=== PATIENT | female | born 1970 | race Native Hawaiian/Other Pacific Islander ===

== ENCOUNTER 2018-06-06 08:51 | Emergency (ER) | payer BC ==
[2018-06-06 09:14] VITALS: BMI 33.5
[2018-06-06 09:18] VITALS: RESP 18; TEMP 98.8
--- NOTE | 2018-06-06 09:33 | ED PDOC ---
Arrival/HPI - General Historian: Patient - History of Present Illness Narrative History of Present Illness (Text): 06/06/18 09:26 Patient is a 48yo F with no significant PMH presenting to the ED with vaginal bleeding. She reports profuse vaginal bleeding with clots that began on Wednesdayt evening. The bleeding has slowed over the past 2 days, and now is light. Patient reports associated LLQ cramping pain that she rates 3/10. She reports having a sore throat and cold symptoms for the past 5 days and saw her PMD Dr. Ruiz Wednesday who gave her azithromycin to take. She reports taking 2 doses, 2 hours after which the vaginal bleeding began. Patient denies prior history of abnormal vaginal bleeding, claiming her last menstrual period was 3-4 years ago. She denies family history of cancer. She reports continuation of her productive cough and sore throat at this time. She denies fever, chills, nausea, vomiting, diarrhea, dysuria. She reports some fatigue. <Saurav Babcock - Last Filed: 06/06/18 13:59> <Charlie Scott - Last Filed: 06/06/18 18:40> - General Chief Complaint: Female Genitourinary Past Medical History - Past Medical History Past Medical History: No Previous - Cardiac Hx Cardiac Disorders: No - Pulmonary Hx Respiratory Disorders: No - Neurological Hx Neurological Disorder: No - HEENT Hx HEENT Disorder: No - Renal Hx Renal Disorder: No - Endocrine/Metabolic Hx Endocrine Disorders: No - Hematological/Oncological Hx Blood Disorders: No - Integumentary Hx Dermatological Disorder: Yes (Generalized body rash. "Allergy" as per pt.) - Musculoskeletal/Rheumatological Hx Musculoskeletal Disorders: No Hx Falls: No - Gastrointestinal Hx Gastrointestinal Disorders: No - Genitourinary/Gynecological Hx Genitourinary Disorders: No - Psychiatric Hx Depression: No Hx Emotional Abuse: No Hx Physical Abuse: No Hx Substance Use: No - Past Surgical History Past Surgical History: No Previous - Surgical History Hx Section: Yes - Anesthesia Hx Anesthesia: Yes Hx Anesthesia Reactions: No Hx Malignant Hyperthermia: No - Suicidal Assessment Feels Threatened In Home Enviroment: No <Saurav Babcock - Last Filed: 06/06/18 13:59> Family/Social History Family/Social History: No Known Family HX Smoking Status: Never Smoked Hx Alcohol Use: No Hx Substance Use: No Hx Substance Use Treatment: No <Saurav Babcock - Last Filed: 06/06/18 13:59> Allergies/Home Meds <Kane Babcockroxaneanthony - Last Filed: 06/06/18 13:59> <Charlie Scott - Last Filed: 06/06/18 18:40> Allergies/Adverse Reactions: Allergies chocolate flavor Allergy (Verified 06/06/18 09:13) RASH peanut Allergy (Verified 06/06/18 09:13) ANAPHYLAXIS strawberry Allergy (Verified 06/06/18 09:13) RASH Review of Systems - Review of Systems Constitutional: Fatigue Eyes: Normal ENT: Normal Respiratory: Cough, Sputum Cardiovascular: Normal Gastrointestinal: Abdominal Pain. absent: Diarrhea, Nausea, Vomiting, Hematochezia Genitourinary Female: Vaginal Bleeding. absent: Dysuria Musculoskeletal: Normal Skin: Normal Neurological: Normal Endocrine: Normal Psychiatric: Normal <Kane Babcockroxaneanthony - Last Filed: 06/06/18 13:59> Physical Exam Vital Signs Reviewed: Yes Vital Signs Temp Pulse Resp BP Pulse Ox 06/06/18 09:14 98.8 F 53 L 18 130/90 95 Temperature: Afebrile Blood Pressure: Normal Pulse: Bradycardic Respiratory Rate: Normal Appearance: Positive for: Well-Appearing, Non-Toxic, Comfortable Pain Distress: None Mental Status: Positive for: Alert and Oriented X 3 - Systems Exam Head: Present: Atraumatic, Normocephalic Pupils: Present: PERRL Extroacular Muscles: Present: EOMI Conjunctiva: Present: Normal Mouth: Present: Moist Mucous Membranes Pharnyx: Present: ERYTHEMA. No: EXUDATE, TONSILS ENLARGED, Uvular Deviation Neck: Present: Normal Range of Motion Respiratory/Chest: Present: Clear to Auscultation, Good Air Exchange. No: Respiratory Distress, Accessory Muscle Use, Wheezes, Rales, Rhonchi Cardiovascular: Present: Regular Rate and Rhythm, Normal S1, S2. No: Murmurs, Rub, Gallop Abdomen: Present: Normal Bowel Sounds. No: Tenderness, Distention, Peritoneal Signs Genitourinary/Pelvic Exam: Present: Normal External Genitalia, Vaginal Bleeding. No: Vaginal Discharge, Vaginal Lesions Upper Extremity: Present: Normal Inspection. No: Cyanosis, Edema Lower Extremity: Present: Normal Inspection. No: Edema Neurological: Present: GCS=15, CN II-XII Intact, Speech Normal, Motor Func Grossly Intact Skin: Present: Warm, Normal Color. No: Dry, Rashes Psychiatric: Present: Alert, Oriented x 3, Normal Insight, Normal Concentration <Saurav Babcock - Last Filed: 06/06/18 13:59> Vital Signs Temp Pulse Resp BP Pulse Ox 06/06/18 14:28 60 18 122/86 97 06/06/18 09:14 98.8 F 53 L 18 130/90 95 <Charlie Scott - Last Filed: 06/06/18 18:40> Medical Decision Making ED Course and Treatment: 06/06/18 13:20 Patient reports continuation of her vaginal bleeding, having changed her pad 3 times since in the ED. CT abd/pel without significant findings. 06/06/18 14:00 TVUS without significant findings. Discussed findings with patient, recommended close follow up with [facility]. Advised patient to stop taking azithromycin and to return to ED if symptoms worsen. Patient understood and agreed. <Saurav Babcock - Last Filed: 06/06/18 13:59> - Lab Interpretations Lab Results: PT 12.3 SECONDS (9.4-12.5) 06/06/18 09:45 INR 1.09 06/06/18 09:45 APTT 31.8 Seconds (26.9-38.3) 06/06/18 09:45 Total Bilirubin 0.9 mg/dL (0.2-1.3) 06/06/18 09:45 AST 29 U/L (14-36) 06/06/18 09:45 ALT 22 U/L (7-56) 06/06/18 09:45 Alkaline Phosphatase 81 U/L (38-126) 06/06/18 09:45 Total Protein 8.1 g/dL (5.8-8.3) 06/06/18 09:45 Albumin 4.3 g/dL (3.0-4.8) 06/06/18 09:45 Globulin 3.8 gm/dL 06/06/18 09:45 Albumin/Globulin Ratio 1.2 (1.1-1.8) 06/06/18 09:45 Lipase 64 U/L (23-300) 06/06/18 09:45 Urine Color Yellow (YELLOW) 06/06/18 09:45 Urine Appearance Turbid (CLEAR) 06/06/18 09:45 Urine pH 6.5 (4.7-8.0) 06/06/18 09:45 Ur Specific Joshua 1.020 (1.005-1.035) 06/06/18 09:45 Urine Protein Negative mg/dL (<30 mg/dL) 06/06/18 09:45 Urine Glucose (UA) Negative mg/dL (NEGATIVE) 06/06/18 09:45 Urine Ketones Negative mg/dL (NEGATIVE) 06/06/18 09:45 Urine Blood Large (NEGATIVE) H 06/06/18 09:45 Urine Nitrate Negative (NEGATIVE) 06/06/18 09:45 Urine Bilirubin Negative (NEGATIVE) 06/06/18 09:45 Urine Urobilinogen 0.2 E.U./dL (<1 E.U./dL) 06/06/18 09:45 Ur Leukocyte Esterase Negative Travon/uL (NEGATIVE) 06/06/18 09:45 Urine RBC Tntc /hpf (0-2) H 06/06/18 09:45 Urine WBC 0 - 2 /hpf (0-6) 06/06/18 09:45 Ur Epithelial Cells 1 - 3 /hpf (0-5) 06/06/18 09:45 - RAD Interpretation Radiology Orders: 06/06/18 09:28 TRANSVAGINAL [US] Routine 06/06/18 09:54 ABD PELVIS PO & IV CONTRAST [CT] Stat <Charlie Scott - Last Filed: 06/06/18 18:40> - PA / [employer] APPLICATIONS MANAGER / Resident Statement MD/DO has reviewed & agrees with the documentation as recorded. (48yo F with no significant PMH presenting to the ED with vaginal bleeding. No abd pain on exam. No blood thinners or hx of blood clotting issues or bleeding issues. No fall or trauma. No visible signs of lesions when pelvic exam done with resident. No CMT or adnexeal pain. No rash or strawberry uterus. Given 6mm endometrium, h&h wnl, will reccomend patient followup urgently w/ OBGYN and UROLOGY. Pt denies any back pain or urinary complaints and did not have any CVAT or midline pain on exam.) <Charlie Scott - Last Filed: 06/06/18 18:40> Disposition/Present on Arrival - Present on Arrival Any Indicators Present on Arrival: No History of DVT/PE: No History of Uncontrolled Diabetes: No Urinary Catheter: No History of Decub. Ulcer: No History Surgical Site Infection Following: None - Disposition Have Diagnosis and Disposition been Completed?: Yes Disposition Time: 14:02 <Saurav Babcock - Last Filed: 06/06/18 13:59> <Charlie Scott - Last Filed: 06/06/18 18:40> - Disposition Diagnosis: URI (upper respiratory infection), Vaginal bleeding Disposition: HOME/ ROUTINE Condition: STABLE Discharge Instructions (ExitCare): Viral Upper Respiratory Infection, Adult (DC), Bleeding After Menopause Additional Instructions: Please follow up with your primary doctor for routine care. Please follow up with your ham boner this week. Stop taking azithromycin. Take Mucinex as needed for cough. If symptoms worsen, return to emergency department. Prescriptions: Guaifenesin [Mucinex] 600 mg PO BID #30 tab.er.[id number] Referrals: Dulce Ruiz MD [Family Provider] - Follow up with primary Forms: [employer] (Danish)
[2018-06-06] MEDS ORDERED: Iohexol 240 (50 ml) ONE (10:02)
[2018-06-06 10:04] LABS: BASO # 0.03 K/mm3 (0.0-2.0); BASO % 0.5 % (0.0-3.0); EOS # 0.3 (0.0-0.7); EOS % 4.6 % (1.5-5.0); LYMPH # 2.2 (1.2-3.4); LYMPH % 38.8 % (22.0-35.0); MEAN CELL VOLUME 87.5 fl (80.0-105.0); MEAN CORPUSCULAR HEMOGLOBIN 29.1 pg (25.0-35.0); MEAN CORPUSCULAR HGB CONC 33.2 g/dl (31.0-37.0); MONO # 0.4 (0.1-0.6); MONO % 7.2 % (1.0-6.0); PH,URINE 6.5 (4.7-8.0); RBC 4.47 10^6/uL (3.5-6.1); RED CELL DISTRIBUTION WIDTH 13.8 % (11.5-14.5); URINE BILIRUBIN NEGATIVE (NEGATIVE); URINE BLOOD LARGE (NEGATIVE); URINE GLUCOSE (UA) NEGATIVE (NEGATIVE); URINE LEUKOCYTE ESTERASE NEGATIVE Leu/uL (NEGATIVE); URINE PROTEIN NEGATIVE mg/dL (<30 mg/dL); URINE UROBILINOGEN 0.2 E.U./dL (<1 E.U./dL); WHITE BLOOD COUNT 5.7 10^3/uL (4.5-11.0)
[2018-06-06 10:05] LABS: URINE APPEARANCE TURBID (CLEAR); URINE COLOR YELLOW (YELLOW)
[2018-06-06 10:09] LABS: ALB/GLOB RATIO 1.2 (1.1-1.8); ALBUMIN 4.3 g/dL (3.0-4.8); ALT/SGPT 22 U/L (7-56); AST/SGOT 29 U/L (14-36); BLOOD UREA NITROGEN 12 mg/dL (7-21); CALCIUM 9.3 mg/dL (8.4-10.5); GFR NON-AFRICAN AMERICAN > 60; INR 1.09; LIPASE 64 U/L (23-300); PARTIAL THROMBOPLASTIN TIME 31.8 Seconds (26.9-38.3); PROTHROMBIN TIME 12.3 SECONDS (9.4-12.5)
[2018-06-06 10:17] LABS: URINE RBC TNTC /hpf (0-2); URINE WBC 0 - 2 /hpf (0-6)
--- NOTE | 2018-06-06 12:52 | CT ---
Date of service: 06/06/2018 PROCEDURE: CT Abdomen and Pelvis with contrast HISTORY: left lower quadrant pain with vaginal bleeding COMPARISON: None. TECHNIQUE: Contrast dose: Radiation dose: Total exam DLP = 1012.28 mGy-cm. This CT exam was performed using one or more of the following dose reduction techniques: Automated exposure control, adjustment of the mA and/or kV according to patient size, and/or use of iterative reconstruction technique. FINDINGS: LOWER THORAX: Unremarkable. LIVER: Unremarkable. No gross lesion or ductal dilatation. GALLBLADDER AND BILE DUCTS: Unremarkable. PANCREAS: Unremarkable. No gross lesion or ductal dilatation. SPLEEN: Unremarkable. ADRENALS: Unremarkable. No mass. KIDNEYS AND URETERS: Unremarkable. No hydronephrosis. No solid mass. VASCULATURE: Unremarkable. No aortic aneurysm. No aortic atherosclerotic calcification or mural plaque present. BOWEL: Unremarkable. No obstruction. No gross mural thickening. APPENDIX: Normal appendix. PERITONEUM: Unremarkable. No free fluid. No free air. LYMPH NODES: Unremarkable. No enlarged lymph nodes. BLADDER: Unremarkable. REPRODUCTIVE: Unremarkable. BONES: No acute fracture. OTHER FINDINGS: None. IMPRESSION: Unremarkable contrast enhanced CT of the abdomen and pelvis.
--- NOTE | 2018-06-06 13:53 | US ---
Date of service: 06/06/2018 PROCEDURE: HISTORY: vaginal bleeding, left lower quadrant pain COMPARISON: TECHNIQUE: FINDINGS: The uterus measures 7.9 x 4.1 x 5.5 centimeters. The endometrium measures 6 millimeters. The left ovary measures 2.2 x 1.9 centimeters. The right ovary measures 3.4 x 2.9 centimeters. There is no fluid the pelvis. IMPRESSION: Normal exam.
[2018-06-06 14:29] VITALS: BP 122/86; PULSE 60; O2SAT 97
== END 2018-06-06 14:41 | disposition home or self-care (01) ==
LOC: ED 08:51
DX: J06.9 Acute upper respiratory infection, unspecified (principal); N93.9 Abnormal uterine and vaginal bleeding, unspecified
CPT/HCPCS: 74177; 76830; 80053; 81001; 81025; 83690; 85025; 85610; 85730; 87086; 99283; Q9966; Q9967